=== PATIENT | male | born 2000 | race African-American/Black ===

== ENCOUNTER 2021-01-07 10:10 | Emergency (ER) | payer SELFPAY ==
[~2021-01-07] VITALS: Ht 160 cm; Wt 58.0 kg
[2021-01-07] MEDS ORDERED: ELIMC TP (11:52)
[2021-01-07 12:01] VITALS: BP 114/48
== END 2021-01-07 12:03 | disposition home or self-care (01) ==
LOC: ER 10:10
DX: S10.96XA Insect bite of unspecified part of neck, initial encounter (principal); S20.369A Insect bite (nonvenomous) of unspecified front wall of thorax, initial encounter; S30.861A Insect bite (nonvenomous) of abdominal wall, initial encounter; R21 Rash and other nonspecific skin eruption; W57.XXXA Bitten or stung by nonvenomous insect and other nonvenomous arthropods, initial encounter; Y93.89 Activity, other specified; Y92.89 Other specified places as the place of occurrence of the external cause; Y99.8 Other external cause status
CPT/HCPCS: 99282